=== PATIENT | female | born 1980 | race Caucasian/White ===

== ENCOUNTER 2019-06-18 19:00 | Emergency (ER) | payer SELFPAY ==
--- NOTE | 2019-06-18 19:51 | ED.PDOC ---
History of Present Illness - General Chief Complaint: Respiratory Problem Stated Complaint: weakness,sycopal episode,sore throat Time Seen by Provider: 06/18/19 19:17 - History of Present Illness Initial Comments: 38F no significant pmh presents with friend to ED c/o acute onset of syncope in shower today. Pt states she was standing in the shower when she suddenly developed lightheadedness, abdominal pain with nausea, sudden fatigue, and seconds of sharp non-radiating CP that then resolved. Pt then sat down in the shower which was followed by syncopal episode. Pt states she woke up moments later hung over the side of the tub. She denies head/neck trauma/injury/pain. She denies intraoral lesions as well as urinary/bowel incontinence. She has denies h/o similar sx's. She informs that over the past few days she has felt i ll with sore throat, generalized fatigue, and SOB described as increased work breathing; denies "air hunger". She currently only has mild nausea and denies CP, SOB, cough, abdominal pain, acute changes in bowels/urination. Pt is otherwise healthy with no other signs, symptoms, or complaints. Allergies/Adverse Reactions: Allergies NO KNOWN ALLERGY Allergy (Verified 06/18/19 19:32) Home Medications: Ambulatory Orders NK 06/18/19 Review of Systems - Review of Systems Constitutional: States: other - generalized fatigue. Denies: chills, fever EENTM: States: throat pain. Denies: eye pain, blurred vision, ear pain, nose pain, nose congestion Respiratory: States: short of breath. Denies: cough Cardiology: States: chest pain, syncope. Denies: edema, palpitations Gastrointestinal/Abdominal: States: abdominal pain, nausea. Denies: constipation, diarrhea, vomiting Genitourinary: Denies: dysuria, frequency Musculoskeletal: States: other - denies body aches. Denies: back pain, muscle pain, neck pain Skin: Denies: change in color, rash Neurological: Denies: headache, numbness, tingling Hematologic/Lymphatic: Denies: anemia, blood clots Past Medical History (General) - Patient Medical History Hx Congestive Heart Failure: No Hx Diabetes: No - Vaccination History Hx Influenza Vaccination: No - Female History Patient : No - Triage Comment ED Triage Comment: Denies shortness of breath at present, did have nausea today Family Medical History - Family History Mother Family History: Unknown Physical Exam - Physical Exam General Appearance: Alert, Comfortable, No apparent distress, Well Developed, Well Hydrated, Well Nourished Eye Exam: bilateral normal, bilateral other - EOM intact, conjunctiva nl, no scleral icterus, no nystagmus bilaterally Ears, Nose, Throat: normal ENT inspection, other - trace erythema to posterior oropharynx, tonsils 0, no exudates, no palatale petechia, no vesicles, bilateral TM's and EAC's wnl with no acute findings Neck: non-tender, full range of motion, supple, other - no cervical lymphadonapthy and no soft tissue TTP Respiratory: lungs clear, normal breath sounds, no respiratory distress, no accessory muscle use Cardiovascular/Chest: normal peripheral pulses, regular rate, rhythm, no edema, no gallop, no JVD, no murmur Gastrointestinal/Abdominal: normal bowel sounds, non tender, soft, no organomegaly, no pulsatile mass Back Exam: no vertebral tenderness, other - no midline or paraspinal muscle TTP Extremity: normal range of motion, normal inspection, other - fully weight bearing and ambulatory on own without guarding/hesitation 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 I will perform labs, EKG, imaging, provide appropriate pharmacotherapy, and continue to monitor/reassess. Dispo will depend on labs results, EKG, imaging results, and overall course in ED. Multiple rechecks of pt performed. NAD, VSS, and with continued improvement throughout ED course. 21:09 Rechecked pt with friend at bedside. NAD, VSS. I have discussed lab results, radiology results, my clinical impression, and diagnosis. I have discussed my recommendation of admission for further workup, observation, and management. Pt does not want admitted at this time. I have discussed risk /benefits/alternatives of discharge home including up-to but no limited to permanent disability and . Pt is aware of risks but states financially she can't afford it. I have given strict ED return precautions including but not limited to: chest pain, difficulty breathing, dizziness, near-syncope, syncope, vision changes, and/or any other symptoms concerning to her. I have also discussed plan for discharge home with f/u, education, and continued management at home. Pt and friend voice understanding, agree with plan, and all questions answered. - Results/Orders Results/Orders: EKG 06/18/2019 @2014: ED physician read @2019. NSR with sinus arrhythmia @92, nl axis, intervals wnl, no ST elevations/depressions, nonspecific ST/T-wave changes. No STEMI. No prior EKG's available for comparison. Laboratory Tests 06/18/19 06/18/19 06/18/19 20:00 20:00 20:00 WBC 10.4 RBC 5.24 Hgb 13.2 Hct 38.9 MCV 74.3 L MCH 25.2 L MCHC 33.8 RDW 15.4 H Plt Count 271 MPV 8.5 Absolute Neuts (auto) 8.40 H Absolute Lymphs (auto) 1.00 Absolute Monos (auto) 0.80 Absolute Eos (auto) 0.10 Absolute Basos (auto) 0.00 Neutrophils % 80.9 H Lymphocytes % 9.6 L Monocytes % 8.0 Eosinophils % 1.1 Basophils % 0.4 Normal RBC Morphology Stain quality accept D-Dimer, Quantitative < 100 L Sodium 137 Potassium 3.2 L Chloride 104 Carbon Dioxide 25 Anion Gap 11.2 L BUN 16 Creatinine 0.87 BUN/Creatinine Ratio 18.4 Random Glucose 80 Serum Osmolality 274.0 L Calcium 9.7 Total Bilirubin 0.5 AST 20 ALT 10 Alkaline Phosphatase 41 L Troponin I Serum Total Protein 7.7 Albumin 4.1 Globulin 3.6 H Albumin/Globulin Ratio 1.1 TSH 1.60 Urine Color Urine Appearance Urine pH Ur Specific [place] Urine Protein Urine Glucose (UA) Urine Ketones Urine Blood Urine Nitrite Urine Bilirubin Urine Urobilinogen Ur Leukocyte Esterase Urine RBC Urine WBC Ur Epithelial Cells Urine Bacteria Urine Mucus Group A Strep Rapid 06/18/19 06/18/19 06/18/19 20:00 20:00 20:30 WBC RBC Hgb Hct MCV MCH MCHC RDW Plt Count MPV Absolute Neuts (auto) Absolute Lymphs (auto) Absolute Monos (auto) Absolute Eos (auto) Absolute Basos (auto) Neutrophils % Lymphocytes % Monocytes % Eosinophils % Basophils % Normal RBC Morphology D-Dimer, Quantitative Sodium Potassium Chloride Carbon Dioxide Anion Gap BUN Creatinine BUN/Creatinine Ratio Random Glucose Serum Osmolality Calcium Total Bilirubin AST ALT Alkaline Phosphatase Troponin I < 0.02 Serum Total Protein Albumin Globulin Albumin/Globulin Ratio TSH Urine Color Yellow Urine Appearance Sl cloudy Urine pH 5.5 Ur Specific [place] 1.025 Urine Protein Trace Urine Glucose (UA) Negative Urine Ketones Trace Urine Blood Negative Urine Nitrite Negative Urine Bilirubin Negative Urine Urobilinogen 0.2 Ur Leukocyte Esterase Negative Urine RBC 0 Urine WBC 1-3 Ur Epithelial Cells 0-1 Urine Bacteria 0 Urine Mucus Small Group A Strep Rapid Negative PROCEDURE: CT Head CLINICAL HISTORY: syncope TECHNIQUE: Contiguous axial CT images obtained through the brain without IV contrast. Coronal and sagittal reformatted images were provided. This exam was performed according to our departmental dose-optimization program, which includes automated exposure control, adjustment of the mA and/or kV according to patient size and/or use of iterative reconstruction technique. COMPARISON: None available for comparison FINDINGS: Brain: No significant white matter changes. No focal mass effect. Zhou-white matter differentiation is within normal limits. No hemorrhage. Ventricles: No ventriculomegaly or midline shift. Extra-axial spaces: No extra- axial collection or hemorrhage. Paranasal sinuses and mastoid air cells: Left maxillary sinus mucous retention cyst/polyp. Vessels: Unremarkable Bones: Unremarkable Soft tissues: Scattered ovoid calcified lesions in the scalp which may represent chronic sebaceous cysts. IMPRESSION: No acute intracranial or extra-axial abnormality. Electronically signed by: Gemini Amaya MD 06/18/2019 8:37 PM CDT EXAM DESCRIPTION: XR Chest,1 View CLINICAL HISTORY: syncope, URI TECHNIQUE: Single frontal view of the chest is submitted. COMPARISON: None available for comparison FINDINGS: Heart: The cardiothoracic silhouette is within normal limits. Lungs: No focal consolidation. Mediastinum: Unremarkable Pleura: No appreciable effusion. No pneumothorax. Bones: Intact Upper abdomen: Unremarkable IMPRESSION: No acute disease. Electronically signed by: Gemini Amaya MD 06/18/2019 8:16 PM CDT Departure - Departure Clinical Impression: Syncope, Dehydration, Viral illness, Hypokalemia, Vasovagal episode Time of Disposition: 21:17 Disposition: Discharge to Home or Self Care Condition: Excellent Departure Forms: ED Discharge - Pt. Copy, Patient Portal Self Enrollment Instructions: Hypokalemia (DC), Vasovagal Response, Syncope (Fainting) (DC), Viral Syndrome (DC) Diet: regular diet, other - increase potassium intake Referrals: Tasha Rosen NP [Primary Care Provider] - 1-2 Days Home Medications: Ambulatory Orders NK 06/18/19 Comments: Arron Branch DO [facility] #[id number]
--- NOTE | 2019-06-18 20:18 | RAD ---
EXAM DESCRIPTION: XR Chest,1 View CLINICAL HISTORY: syncope, URI TECHNIQUE: Single frontal view of the chest is submitted. COMPARISON: None available for comparison FINDINGS: Heart: The cardiothoracic silhouette is within normal limits. Lungs: No focal consolidation. Mediastinum: Unremarkable Pleura: No appreciable effusion. No pneumothorax. Bones: Intact Upper abdomen: Unremarkable IMPRESSION: No acute disease. Electronically signed by: Gemini Amaya MD 06/18/2019 8:16 PM CDT
--- NOTE | 2019-06-18 20:38 | CT ---
PROCEDURE: CT Head CLINICAL HISTORY: syncope TECHNIQUE: Contiguous axial CT images obtained through the brain without IV contrast. Coronal and sagittal reformatted images were provided. This exam was performed according to our departmental dose-optimization program, which includes automated exposure control, adjustment of the mA and/or kV according to patient size and/or use of iterative reconstruction technique. COMPARISON: None available for comparison FINDINGS: Brain: No significant white matter changes. No focal mass effect. Zhou-white matter differentiation is within normal limits. No hemorrhage. Ventricles: No ventriculomegaly or midline shift. Extra-axial spaces: No extra-axial collection or hemorrhage. Paranasal sinuses and mastoid air cells: Left maxillary sinus mucous retention cyst/polyp. Vessels: Unremarkable Bones: Unremarkable Soft tissues: Scattered ovoid calcified lesions in the scalp which may represent chronic sebaceous cysts. IMPRESSION: No acute intracranial or extra-axial abnormality. Electronically signed by: Gemini Amaya MD 06/18/2019 8:37 PM CDT
[2019-06-18] MEDS ORDERED: ONDANSETRON ODT 8 MG TAB SL ONE (21:17)
[2019-06-18 22:05] VITALS: BP 118/78; TEMP 98.4; O2SAT 98
== END 2019-06-18 22:06 | disposition home or self-care (01) ==
LOC: ER 19:00
DX: R55 Syncope and collapse (principal); E86.0 Dehydration; B34.9 Viral infection, unspecified; E87.6 Hypokalemia